=== PATIENT | female | born 1975 | race Caucasian/White ===

== ENCOUNTER 2023-01-18 20:59 | Emergency (ER) | payer OTHER ==
[~2023-01-18] VITALS: Ht 167.6 cm; Wt 73.5 kg
--- NOTE | 2023-01-18 21:10 | NUR ---
Triaged patient and placed in ER bed 8 for evaluation. Report given to [facility] for continuity of care. Bed in lowest position with side rails up. Instructed to notify ED staff for any changes in condition or worsening of symptoms. Patient verbalized understanding.
[2023-01-18 21:29] VITALS: BP_SYST 168
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
[2023-01-18] MEDS ORDERED: ACETAMINOPHEN 500 MG TABLET PO ONE (23:30)
--- NOTE | 2023-01-19 01:15 | NUR ---
Patient resting quietly. No acute distress noted. VSS.
[2023-01-19] MEDS ORDERED: NAPR-686 PO (02:27)
[2023-01-19] MEDS ORDERED: CYCL10TA24 PO (02:27)
[2023-01-19] MEDS ORDERED: ACET12.55 PO (02:27)
[2023-01-19 02:39] VITALS: BP_SYST 135
--- NOTE | 2023-01-19 02:39 | NUR ---
Patient given written and verbal discharge instructions and verbalizes understanding. ER MD discussed with patient the results and treatment provided. Patient in stable condition. ID arm band removed. Rx of FLEXERIL, NAPROXEN, TYLENOL3 given. Patient educated on pain management and to follow up with PMD. Pain Scale 5. Opportunity for questions provided and answered. Medication side effect fact sheet provided.
== END 2023-01-19 02:39 | disposition home or self-care (01) ==
LOC: SED 20:59
DX: S13.4XXA Sprain of ligaments of cervical spine, initial encounter (principal); S70.02XA Contusion of left hip, initial encounter; Z79.899 Other long term (current) drug therapy; V29 Motorcycle rider injured in other and unspecified transport accidents; Y93.89 Activity, other specified; Y92.89 Other specified places as the place of occurrence of the external cause; Y99.8 Other external cause status
CPT/HCPCS: 70450-TC; 71045; 72125-TC; 72170-TC; 73502; 76376; 99284